=== PATIENT | male | born 1980 | race Caucasian/White ===

== ENCOUNTER 2016-07-17 11:02 | Emergency (ER) | payer BC, MEDICAID ==
--- NOTE | 2016-07-17 11:04 | EDM.PDOC ---
ED HPI DIABETIC EMERGENCY - General Chief Complaint: General Stated Complaint: IN BY AMBULANCE Time Seen by Provider: 07/17/16 11:04 Source of Information: Reports: EMS History Limitations: Reports: No limitations - History of Present Illness INITIAL COMMENTS - FREE TEXT/NARRATIVE: 36 white male w/IDDM brought in by ambulance with elevated blood sugar ( Pt. has had no medication since Noon yesterday), Mom reports that he was stopped by police in [employer] Tuesday for swerving and did not get his medications ( left medications in truck). PMHx. IDDM, Gastroparesis and CVA. Pt. was recently in hospital in [place] on w/ low BS and his PCP is in [place]. All History obtained from Mother Symptom Onset Date: 07/15/16 Symptom Onset Time: 12:00 Timing/Duration: Reports: Day(s): (Pt. was arrested on and did not receive his medication) Location, General: Reports: generalized Severity: moderate Associated Symptoms: Reports: weakness ED ROS GENERAL - Review of Systems Review Of Systems: See Below Constitutional: Reports: malaise, weakness HEENT: Reports: No symptoms Respiratory: Reports: No Symptoms Cardiovascular: Reports: No symptoms Endocrine: Reports: no symptoms GI/Abdominal: Reports: No symptoms : Reports: no symptoms Musculoskeletal: Reports: no symptoms Skin: Reports: no symptoms Neurological: Reports: Trouble Speaking, Other (PMHx. CVA) Psychiatric: Reports: No symptoms Hematologic/Lymphatic: Reports: no symptoms Immunologic: Reports: no symptoms ED EXAM GENERAL NO PERIP PULSE - Physical Exam Exam: See Below General Appearance: alert, no apparent distress, lethargic Eye Exam: bilateral eye: PERRL Ears: normal external exam Nose: normal inspection, no blood Throat/Mouth: Normal inspection, Normal lips Head: atraumatic, normocephalic Neck: normal inspection, supple Respiratory/Chest: no respiratory distress, lungs clear Cardiovascular: normal peripheral pulses, regular rate, rhythm GI/Abdominal: normal bowel sounds, soft (healed abdomen scars) (Male) Exam: No hernia Back Exam: normal inspection Extremities: normal inspection, normal range of motion, non-tender Neurological: alert Psychiatric: normal affect Skin Exam: Warm, Intact Lymphatic: no adenopathy Course - Vital Signs Last Recorded V/S: Last Vital Signs Temp 36.0 C 07/17/16 11:09 Pulse 106 H 07/17/16 11:09 Resp 20 07/17/16 11:09 BP 105/69 07/17/16 11:09 Pulse Ox 100 07/17/16 11:09 - Orders/Labs/Meds Orders: Active Orders 24 hr Category Date Time Status EKG 12 Lead [EKG Documentation Completion] [RC] STAT Care 07/17/16 11:05 Active Chest 1V Frontal [CR] Urgent Exams 07/17/16 11:05 Ordered Head wo Cont [CT] Urgent Exams 07/17/16 11:45 Ordered ABG [BLOOD GAS ARTERIAL] [BG] Stat Lab 07/17/16 12:20 Ordered DRUG SCREEN, URINE [URCHEM] Stat Lab 07/17/16 11:11 Ordered UA W/MICROSCOPIC [URIN] Stat Lab 07/17/16 11:05 Ordered Insulin Regular, Human [NovoLIN R] 100 unit Med 07/17/16 12:00 Active Sodium Chloride 0.9% [Normal Saline] 99 ml IV TITRATE NS + KCl 20mEq/L [Normal Saline with 20 mEq KCl] 1,000 Med 07/17/16 12:30 Active ml IV ASDIRECTED Medication Orders Insulin Human Regular 100 unit (/ Sodium Chloride) 100 mls @ 0.5 mls/hr IV TITRATE ANIKA; 0.5 UNITS/HR PRN Reason: Protocol Potassium Chloride/Sodium Chloride (Normal Saline With 20 Meq Kcl) 1,000 mls @ 125 mls/hr IV ASDIRECTED ANIKA Labs: Laboratory Tests 07/17/16 07/17/16 07/17/16 Range/Units 11:22 11:22 11:22 WBC 9.5 (5.0-10.0) 10^3/uL RBC 3.80 L (4.6-6.2) 10^6/uL Hgb 10.8 L (14.0-18.0) g/dL Hct 37.4 L (40.0-54.0) % MCV 98.4 (80-100) fL MCH 28.4 (27.0-34.0) pg MCHC 28.9 L (33.0-35.0) g/dL Plt Count 455 H (150-450) 10^3/uL Neut % (Auto) 83.8 H (42.2-75.2) % Lymph % (Auto) 11.6 L (20.5-50.1) % Wise % (Auto) 3.0 (2-8) % Eos % (Auto) 1.5 (1.0-3.0) % Baso % (Auto) 0.1 (0.0-1.0) % Sodium 138 (135-145) mmol/L Potassium 5.8 H (3.6-5.0) mmol/L Chloride 99 L (101-111) mmol/L Carbon Dioxide 5.0 L* (21.0-31.0) mmol/L Anion Gap 39.8 BUN 38 H (7-18) mg/dL Creatinine 2.1 H (0.6-1.3) mg/dL Est Cr Clr Drug Dosing TNP Estimated GFR (MDRD) 36 BUN/Creatinine Ratio 18.09 Glucose 1116 H* (74-105) mg/dL Lactic Acid (0.5-2.2) mmol/L Calcium 9.3 (8.4-10.2) mg/dl Total Bilirubin 2.2 H (0.2-1.0) mg/dL AST 22 (10-42) IU/L ALT 35 (10-60) IU/L Alkaline Phosphatase 181 H (42-121) IU/L Troponin I < 0.02 (0.00-0.02) ng/ml Total Protein 7.0 (6.7-8.2) g/dl Albumin 3.2 (3.2-5.5) g/dl Globulin 3.8 Albumin/Globulin Ratio 0.84 Ketones Positive 07/17/16 Range/Units 12:05 WBC (5.0-10.0) 10^3/uL RBC (4.6-6.2) 10^6/uL Hgb (14.0-18.0) g/dL Hct (40.0-54.0) % MCV (80-100) fL MCH (27.0-34.0) pg MCHC (33.0-35.0) g/dL Plt Count (150-450) 10^3/uL Neut % (Auto) (42.2-75.2) % Lymph % (Auto) (20.5-50.1) % Wise % (Auto) (2-8) % Eos % (Auto) (1.0-3.0) % Baso % (Auto) (0.0-1.0) % Sodium (135-145) mmol/L Potassium (3.6-5.0) mmol/L Chloride (101-111) mmol/L Carbon Dioxide (21.0-31.0) mmol/L Anion Gap BUN (7-18) mg/dL Creatinine (0.6-1.3) mg/dL Est Cr Clr Drug Dosing Estimated GFR (MDRD) BUN/Creatinine Ratio Glucose (74-105) mg/dL Lactic Acid 2.1 (0.5-2.2) mmol/L Calcium (8.4-10.2) mg/dl Total Bilirubin (0.2-1.0) mg/dL AST (10-42) IU/L ALT (10-60) IU/L Alkaline Phosphatase (42-121) IU/L Troponin I (0.00-0.02) ng/ml Total Protein (6.7-8.2) g/dl Albumin (3.2-5.5) g/dl Globulin Albumin/Globulin Ratio Ketones Meds: Medications Generic Name Dose Route Start Last Admin Trade Name Freq PRN Reason Stop Dose Admin Insulin Human Regular 100 unit 100 mls @ 0.5 mls/hr 07/17/16 12:00 / Sodium Chloride IV TITRATE ANIKA Protocol 0.5 UNITS/HR Potassium Chloride/Sodium Chloride 1,000 mls @ 125 mls/hr 07/17/16 12:30 Normal Saline With 20 Meq Kcl IV ASDIRECTED ANIKA Discontinued Medications Generic Name Dose Route Start Last Admin Trade Name Freq PRN Reason Stop Dose Admin Sodium Chloride 1,000 mls @ 999 mls/hr 07/17/16 11:05 Normal Saline IV 07/17/16 12:05 .BOLUS ONE Insulin Human Regular Confirm 07/17/16 12:10 Novolin R Administered 07/17/16 12:11 Dose 1,000 unit .ROUTE .STK-MED ONE Insulin Human Regular 10 unit 07/17/16 12:17 Novolin R IV 07/17/16 12:18 NOW STA Protocol Departure - Departure Time of Disposition: 12:48 Disposition: DC/Tfer to Other 70 Condition: fair Clinical Impression: DKA (diabetic ketoacidoses) Qualifiers: Diabetes mellitus type: type 1 Diabetes mellitus complication detail: without coma Qualified Code(s): E10.10 - Type 1 diabetes mellitus with ketoacidosis without coma Forms: Interfacility Transfer EMTALA - My Orders Last 24 Hours: My Active Orders 07/17/16 11:05 EKG 12 Lead [EKG Documentation Completion] [RC] STAT Chest 1V Frontal [CR] Urgent UA W/MICROSCOPIC [URIN] Stat 07/17/16 11:11 DRUG SCREEN, URINE [URCHEM] Stat 07/17/16 11:45 Head wo Cont [CT] Urgent 07/17/16 12:00 Insulin Regular, Human [NovoLIN R] 100 unit Sodium Chloride 0.9% [Normal Saline] 99 ml IV TITRATE 07/17/16 12:20 ABG [BLOOD GAS ARTERIAL] [BG] Stat 07/17/16 12:30 NS + KCl 20mEq/L [Normal Saline with 20 mEq KCl] 1,000 ml IV ASDIRECTED - Assessment/Plan Last 24 Hours: My Active Orders 07/17/16 11:05 EKG 12 Lead [EKG Documentation Completion] [RC] STAT Chest 1V Frontal [CR] Urgent UA W/MICROSCOPIC [URIN] Stat 07/17/16 11:11 DRUG SCREEN, URINE [URCHEM] Stat 07/17/16 11:45 Head wo Cont [CT] Urgent 07/17/16 12:00 Insulin Regular, Human [NovoLIN R] 100 unit Sodium Chloride 0.9% [Normal Saline] 99 ml IV TITRATE 07/17/16 12:20 ABG [BLOOD GAS ARTERIAL] [BG] Stat 07/17/16 12:30 NS + KCl 20mEq/L [Normal Saline with 20 mEq KCl] 1,000 ml IV ASDIRECTED
[2016-07-17] MEDS ORDERED: Sodium Chloride 0.9% 1,000 ML IV ONE (11:05)
[2016-07-17 11:52] LABS: CHLORIDE,CL 99 mmol/L (101-111); SODIUM,NA 138 mmol/L (135-145)
[2016-07-17] MEDS ORDERED: Insulin Regular, Human 100 Units/ML 10 ML Vial ONE (12:10)
[2016-07-17] MEDS ORDERED: Insulin Regular, Human 100 Units/ML 10 ML Vial IV STA (12:17)
[2016-07-17] MEDS ORDERED: NS + KCl 20mEq/L 1,000 ML IV SCH (12:30)
[2016-07-17 16:02] VITALS: BP 111/55
--- NOTE | 2016-07-27 10:03 | EKG ---
07/17/2016 - LEAH ISABELLA RADHA - TIME: 1111 hours. EKG is sinus rhythm with a rate of 103. Normal WI interval. Normal axis. There are T-wave inversion on the inferolateral leads. IMPRESSION: Abnormal EKG as noted above. [facility] /[id number]
== END 2016-07-17 13:11 | disposition other institution (70) ==
LOC: DL.ED 11:02
DX: E10.10 Type 1 diabetes mellitus with ketoacidosis without coma (principal); I69.322 Dysarthria following cerebral infarction
CPT/HCPCS: 36410; 36415; 51702; 70450; 71010; 80053; 80305; 81001; 82009; 83605; 84484; 85025; 93005; 96365; 96368; 96376; 99285; J3480; J7030; J1815-GY